=== PATIENT | female | born 1960 | race Caucasian/White ===

== ENCOUNTER 2019-09-05 06:28 | Day surgery (SDC) | payer SELFPAY ==
[2019-09-04 09:09] VITALS: BMI 27.4
[2019-09-05] MEDS ORDERED: MIDAZOLAM HCL 2 MG/2 ML SINGLE DOSE VIAL ONE ×2 (07:08)
[2019-09-05] MEDS ORDERED: PROPOFOL 20 ML ONE ×3 (07:08→08:55)
[2019-09-05] MEDS ORDERED: POVIDONE-IODINE 5% OPHTHALMIC PREP 30 ML SOLUTION ONE (07:15)
[2019-09-05] MEDS ORDERED: LIDOCAINE 1%/EPI 1:100000 (20 ML MULTI DOSE VIAL) ONE (07:15)
[2019-09-05] MEDS ORDERED: ERYTHROMYCIN 0.5% OPHTHALMIC OINTMENT 3.5 GM TUBE ONE (07:15)
[2019-09-05] MEDS ORDERED: GLYCOPYRROLATE 0.2 MG/1 ML VIAL ONE (07:15)
[2019-09-05] MEDS ORDERED: ceFAZolin SODIUM 1 GM VIAL ONE (07:15)
[2019-09-05] MEDS ORDERED: TETRACAINE 0.5% OPHTH SOLN 2 ML BOTTLE ONE (07:15)
[2019-09-05] MEDS ORDERED: BUPIVACAINE HCL/PF 0.5% (5MG/ML) 10 ML VIAL ONE (07:15)
[2019-09-05] MEDS ORDERED: ONDANSETRON 4 MG/2 ML VIAL ONE (09:01)
[2019-09-05] MEDS ORDERED: DEXAMETHASONE SOD PHOSPHATE 4 MG/1 ML VIAL ONE (09:01)
[2019-09-05] MEDS ORDERED: oxyCODONE HCL 5 MG TABLET PO PRN (09:46)
[2019-09-05] MEDS ORDERED: ONDANSETRON 4 MG/2 ML VIAL IVPUSH PRN (09:46)
[2019-09-05] MEDS ORDERED: LACTATED RINGERS SOLUTION 1,000 ML IV SCH (10:00)
[2019-09-05] MEDS ORDERED: oxyCODONE HCL 5 MG TABLET ONE (10:59)
--- NOTE | 2019-09-05 11:17 | OP ---
DATE OF OPERATION: 09/05/2019 PREOPERATIVE DIAGNOSIS: Dermatochalasis and brow ptosis left greater than right. POSTOPERATIVE DIAGNOSIS: Dermatochalasis and brow ptosis left greater than right. PROCEDURE: Blepharoplasty bilateral upper lids with fat transposition, brow release on the left, and brassiere suture both eyes. SURGEON: Brandon Balderas MD ANESTHESIA: Local with sedation. COMPLICATIONS: None. ESTIMATED BLOOD LOSS: 2-3 mL. OPERATIVE REPORT: Patient brought to the operating room. Placed on the operating room table. Vital signs were monitored by anthesthesia. Tetracaine was placed in both eyes. Lid crease was marked symmetrically in both upper eyelids and the patient's nasal lid crease approximately 9 mm centrally above the lash line tapering nasally and temporally. These positions were rechecked with caliper to be symmetric, and the amount of skin that could be safely pinches just shy of lash eversion in both upper lids was pinches with smooth forceps, marked with a marking pen for symmetry. Time-out was performed after which 2% Xylocaine, 1:100,000 epinephrine was injected for a total of 2-3 mL in each upper lid subcutaneously with hyrodissection. A small hematoma developed nasally in the right upper lid, not the left upper lid. Massage were applied for hemostasis. Patient was prepped and draped in the usual sterile fashion exposing both eyes. They were maintained closed throughout the case. Lid creases were symmetrically incised tapering up nasally and temporally and then the superior edge of each incision was incised. Skin was removed from both upper lids using Mcdonald needle with a Elmer scissor at the nasal end of the excision. Hemostasis was achieved with Mcdonald needle, and antibiotic irrigation was used throughout the case. Once the skin had been removed from both upper lids, the nasal orbicularis was then incised, and the central orbicularis was incised through the septum exposing the central and nasal fat pockets. The nasal fat pocket was unroofed, and it was dissected out as a pedicle releasing all of the fibrous tissue so it would easily extend over into the central island. Each of the nasal fat pads were then secured to the undersurface of the orbicularis with a 5-0 Vicryl suture placing it in the center of the eyelid and decompressing the nasal fat pad. The central fat pad was exposed and conservatively taped, sculpted, and cauterized to create a smooth contour. Attention was now turned to the lateral portion of the incision where the orbicularis was opened exposing the arcus marginalis at the superolateral orbital rim. A dissection was carried out in the brow fat pad releasing the anterior leaf of the galea on the left brow so that the brow would elevate, and this was done initially with Mcdonald needle then with finger dissection so that the brow would have less inferior placed traction on it releasing the orbital retaining ligament laterally. This was not performed on the right side and then a brassiere suture was placed on both sides with a 5-0 or 6-0 Vicryl placed from the inferior orbicularis to the arcus marginalis to the superior orbicularis. Two sutures were placed on each side to elevate the tail of the brow and to support the temporal brow fat pad giving the eyelid a brock temporal contour. Antibiotic irrigation was performed, and the incisions were then closed. Single 6-0 nylon sutures were placed nasally in both eyelids. A central suture was placed nasally to create 2 ovals. A tempo suture was placed creating the 2nd oval and then that suture was used to run across the eyelid grabbing the skin only with plastic technique closing the wound. Any additional cutaneous deformities were excised, and if necessary, closed with single 6-0 nylon sutures. Erythromycin ointment was placed on the sutures. A small amount was placed on each eye, and the patient was taken to the recovery room in stable condition. BRANDON BALDERAS M.D. [id number]
[2019-09-05 13:06] VITALS: TEMP 97.7
[2019-09-05 13:15] VITALS: BP 130/75; PULSE 68
--- NOTE | 2019-09-08 18:07 | PATH ---
Surgical Pathology Report Patient Name: [facility]. Rec. #: [id number] /Age/Gender: 1960 (Age: 59) / F Account: [id number] Location: [facility] Taken: 09/05/2019 Received: 09/05/2019 Reported: 09/08/2019 Physicians: Genaro Dubois Specimen(s) Received A: SKIN RIGHT UPPER EYELID B: SKIN LEFT UPPER EYELID Clinical History Dermatochalasis Final Diagnosis A. SKIN, RIGHT UPPER EYELID, EXCISION: SKIN WITH SEBORRHEIC KERATOSIS. B. SKIN, LEFT UPPER EYELID, EXCISION: SKIN SHOWING HAIR FOLLICLE WITH FOCAL CYSTIC CHANGE. Electronically Signed Sharona Coello M.D. Gross Description A. Received in formalin labeled "skin right upper eyelid," is a 3.5 x 0.5 cm ramirez, unoriented skin shave. No epidermal lesions are identified. Chief Clerk sections are submitted in one cassette. B. Received in formalin labeled "skin left upper eyelid," is a 4.0 x 0.3 cm ramirez, unoriented skin shave. No epidermal lesions are identified. Chief Clerk sections are submitted in one cassette. DL/09/06/2019 saudi09/06/2019
== END 2019-09-05 12:15 | disposition home or self-care (01) ==
LOC: FASU 06:28
PROVIDERS: ATTEND Ophthalmology
PROC: 0W020ZZ Alteration of Face, Open Approach (ICD-10-PCS; 2019-09-05)
PROC: 0W020ZZ Alteration of Face, Open Approach (ICD-10-PCS; principal; 2019-09-05 08:09)
DX: H02.831 Dermatochalasis of right upper eyelid (principal); H02.834 Dermatochalasis of left upper eyelid; H57.813 Brow ptosis, bilateral
CPT/HCPCS: 88304-TC; 94760